=== PATIENT | female | born 1965 | race Caucasian/White ===

== ENCOUNTER 2017-05-24 20:53 | Emergency (ER) | payer OTHER ==
[~2017-05-24] VITALS: Ht 157.5 cm; Wt 81.6 kg
--- NOTE | 2017-05-24 21:29 | NUR ---
Pt ambulated to room with steady gait. Pt c/o lower abd for approx 4 days, pt concerned she might have a piece of a cream applicator in her vagina. Pt sts she was seen at an urgent care and evaluated, pelvic exam done and was told there was nothing there. Pt conts to c/o pain and wants to check again. Pt resting in position of comfort for self. Awaiting further eval.
--- NOTE | 2017-05-24 21:51 | NUR ---
Dr. Chan at bedside for MSE
[2017-05-24] MEDS ORDERED: HYDROCODONE/APAP 10-325 MG TABLET PO ONE (22:00)
[2017-05-24] MEDS ORDERED: ONDANSETRON ODT 4 MG TAB.RAPDIS SL ONE (22:00)
[2017-05-24 22:17] LABS: BASOPHILS % (AUTO) 0.6 % (0.0-2.0); EOSINOPHILS % (AUTO) 1.7 % (0.0-7.0); HEMATOCRIT 36.5 % (37-47); LYMPHOCYTES % (AUTO) 28.8 % (20.5-51.5); MEAN CORPUSCULAR HEMOGLOBIN 29.2 UUG (27.0-31.0); MEAN CORPUSCULAR HGB CONC 33 g/dL (32.0-37.0); MONOCYTES % (AUTO) 4.5 % (0.0-11.0); NEUTROPHILS % (AUTO) 64.4 % (38.5-71.5); PLATELET COUNT (AUTO) 176 K/UL (150-450); WHITE BLOOD COUNT (AUTO) 6.9 K/UL (4.0-11.2)
--- NOTE | 2017-05-24 22:17 | NUR ---
Pt medicated for discomfort, will monitor for effects of medication. Pt resting in position of comfort for self.
[2017-05-24 22:18] LABS: EOSINOPHILS # (AUTO) 0.1 K/uL (0.0-0.7); MONOCYTES # (AUTO) 0.3 K/UL (0.1-1.30); NEUTROPHILS # (AUTO) 4.5 K/UL (1.8-8.9)
[2017-05-24] MEDS ORDERED: HYDROCODONE/APAP 10-325 MG TABLET ONE (22:27)
[2017-05-24] MEDS ORDERED: ONDANSETRON ODT 4 MG TAB.RAPDIS ONE (22:27)
[2017-05-24 22:39] LABS: CREATININE 0.8 mg/dL (0.6-1.3); POTASSIUM 4.1 mmol/L (3.5-5.1)
[2017-05-24 22:44] LABS: BILIRUBIN,DIRECT 0.1 mg/dL (0.0-0.2); BILIRUBIN,TOTAL 0.3 mg/dL (0.2-1.0)
--- NOTE | 2017-05-24 23:26 | NUR ---
pelvic exam completed by Dr. Chan with Rolo RN as [place]. Wet mount collected and sent
--- NOTE | 2017-05-24 23:50 | NUR ---
Pt conts to c/o severe pain and requesting medication. Dr. Chan notified, awaiting further orders.
[2017-05-25] MEDS ORDERED: IBUPROFEN 600 MG TABLET PO ONE
[2017-05-25] MEDS ORDERED: DICYCLOMINE HCL 10 MG/5 ML UDC LIQ PO ONE
[2017-05-25] MEDS ORDERED: IBUPROFEN 600 MG TABLET ONE (00:15)
[2017-05-25] MEDS ORDERED: DICYCLOMINE HCL 10 MG/5 ML UDC LIQ ONE (00:16)
--- NOTE | 2017-05-25 00:35 | NUR ---
Pt stable for discharge per Dr. Chan. pt given ACi. Pt verbalized understanding of dc instructions. Pt ambulated out of er with steady gait to wr to wait for ride home.
[2017-05-25 01:10] VITALS: BP 120/72
== END 2017-05-25 01:10 | disposition home or self-care (01) ==
LOC: ER 20:54
DX: T19.2XXA Foreign body in vulva and vagina, initial encounter (principal); R10.2 Pelvic and perineal pain; X58.XXXA Exposure to other specified factors, initial encounter; Y93.89 Activity, other specified; Y92.9 Unspecified place or not applicable; Y99.9 Unspecified external cause status
CPT/HCPCS: 36415; 76856; 80048; 80076; 85025; 85730; 87210; 99285; A4663; Q0162

== ENCOUNTER 2017-09-27 19:18 | Emergency (ER) | payer OTHER ==
--- NOTE | 2017-09-27 20:10 | NUR ---
CALLED FOR PT NO ANSWER LWBT
== END 2017-09-27 20:10 | disposition left against medical advice (07) ==
LOC: ER 19:22
DX: Z53.21 Procedure and treatment not carried out due to patient leaving prior to being seen by health care provider (principal)

== ENCOUNTER 2018-03-05 15:04 | Emergency (ER) | payer OTHER ==
[~2018-03-05] VITALS: Ht 167.6 cm; Wt 79.4 kg
[2018-03-05 15:40] LABS: *BILIRUBIN,URIN NEGATIVE (NEGATIVE); *BLOOD, URINE Trace-intact (NEGATIVE); *CLARITY,URINE SLIGHTLY CLOUDY (CLEAR); *COLOR,URINE YELLOW (YELLOW); *KETONES,URINE NEGATIVE (NEGATIVE); *PROTEIN,URINE NEGATIVE (NEGATIVE); *UROBILINOGEN,URINE 0.2 E.U./dl (NORMAL); LEUKOCYTE ESTERASE ,URINE 3+ (NEGATIVE); NITRITE, URINE NEGATIVE (NEGATIVE); UGLUCOSE NEGATIVE (NEGATIVE)
[2018-03-05 15:45] LABS: BACTERIA,URINE FEW /HPF (NONE SEEN); RBC,URINE 0-3 /HPF (0-3); SQUAMOUS EPITHELIAL CELL,UR FEW /HPF (NONE SEEN); WBC,URINE 20-50 /HPF (0-3)
[2018-03-05] MEDS ORDERED: ACETAMINOPHEN ES 500 MG TABLET PO ONE (16:00)
[2018-03-05] MEDS ORDERED: ACETAMINOPHEN ES 500 MG TABLET ONE (16:05)
[2018-03-05 16:07] VITALS: BP 112/78
--- NOTE | 2018-03-05 16:13 | NUR ---
Patient discharged to home in stable conditon. Written and verbal after care instructions given. Patient verbalizes understanding of instructions.
== END 2018-03-05 16:14 | disposition home or self-care (01) ==
LOC: ER 15:04
DX: N39.0 Urinary tract infection, site not specified (principal)
CPT/HCPCS: 74018; A4663; A9150